=== PATIENT | female | born 1975 | race Caucasian/White ===

== ENCOUNTER 2017-07-24 05:35 | Emergency (ER) | payer BC ==
[~2017-07-24] VITALS: Ht 175.3 cm; Wt 125.6 kg
[2017-07-24 05:37] VITALS: TEMP 37; Ht 175.3 cm; Wt 125.6 kg
--- NOTE | 2017-07-24 05:58 | EMERGENCY ROOM VISIT NOTE ---
History First contact with patient: 05:43 Chief Complaint: IRREGULAR HEARTBEAT Stated Complaint: HEART FLUTTERING Nursing Triage Summary: pt c/o "heart fluttering" since yesterday. 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 pt states she has had two ablasions and was on medications, but is not now. states "i can normally control it, but not this time. i normally get it when i'm on my period, which i have now." pt reports "fluttering" began last night while trick or treating with kids, reports "i had this pain behind my knee, and my sister thought my leg looked swollen." pt reports pain behind left knee. pt alert and oriented x4. pt breathing WNL, ambulatory independently. denies sob, chest pain. skin warm and dry. History of Present Illness The patient is a 42 year old female who presents to the Emergency Room for evaluation of palpitations. Patient with rapid palpations throughout the night periodically breaking before going fast again. Associated with some mild lightheadedness. These have occurred previously with her menstrual cycle though notes this is acutely worse tonight and she is unable to break it completely. Admits that since getting here no further palpations. History of WPW which failed 2 ablations and previously required Flecainide but has been off this for quite some time. Denies cp, nausea, vomiting, syncope, headache, neck pain, sob, abdominal pain, urinary/bowel changes nor other symptoms. Admits some left calf swelling over last 6 months s/p injury without significant pain/discomfort. Denies medication use for this. Nothing makes better nor worse. No PE history, no travel, no surgery, no estrogen use. Review of Systems See HPI for pertinent positives & negatives. A total of 10 systems reviewed and were otherwise negative. Social History Smoking Status: Never Smoker Smokeless Tobacco Use: No Alcohol Use: none Drug Use: none Marital Status: Housing Status: lives with family Current/Historical Medications Miscellaneous Medications None (Patient States No Home Meds) Physical Exam Vital Signs Date Time Temp Pulse Resp B/P (MAP) Pulse Ox O2 Delivery O2 Flow Rate FiO2 07/24/17 05:55 113 07/24/17 05:45 Room Air 07/24/17 05:37 37.0 96 20 180/119 99 Room Air Physical Exam GENERAL: Patient is well appearing and in no acute distress. HEENT: No acute trauma, normocephalic atraumatic, mucous membranes moist, no nasal congestion, no scleral icterus. NECK: No stridor, no adenopathy, no meningismus, trachea is midline. LUNGS: No dyspnea. Clear to auscultation and equal bilaterally. No wheeze, no rhonchi. HEART: Regular rate and rhythm. No murmurs, rubs, gallops appreciated. ABDOMEN: Soft, nontender, bowel sounds positive, no masses appreciated, no peritonitis. BACK: No midline tenderness, no CVA tenderness EXTREMITIES: Mild TTP left calf. Bilateral trace lower anterior jackson edema. Normal motion all extremities. NEUROLOGIC: Alert and oriented, no acute motor or sensory deficits, no focal weakness, cranial nerves grossly intact. SKIN: No rash, no jaundice, no diaphoresis. Medical Decision & Procedures ER Provider Diagnostic Interpretation: X ray results are stated below per my interpretation: Chest: 1 view: No infiltrate, no effusion, normal cardiac border. Laboratory Results Test 07/24/17 05:51 ECG Indication: palpitations Rate (beats per minute): 91 Rhythm: normal sinus Findings: ST depression (Anterior), other (WPW) Change: no significant change ([id number]) Medical Decision Differential: NSR, SVT, PACs, PVCs, Cardiac Dysrhythmia, Endocrine Dysfunction, Electrolyte/Metabolic Abnormality, Pulmonary Embolism, Infectious, GI, amongst other pathologies entertained. Very pleasant 42 yr old female arrives for evaluation of palpitations overnight. History of WPW consistent with EKGs x 2 here. EKGs similar to previous from [facility]. Having no palpations here nor difficulty with other symptoms. I did note some left calf discomfort thus with palpations felt it prudent to get Dimer, though with minimal PE risk otherwise seems reasonable to await this prior to CTA given stable vitals. Multiple other labs ordered and pending. Signed out to Dr Ochoa awaiting labs and further evaluation. Medication Reconcilliation Current Medication List: was personally reviewed by me Impression Primary Impression: Rapid palpitations Departure Information Referrals Bren Mcguire D.O. (PCP) Patient Instructions [facility]
--- NOTE | 2017-07-24 06:31 | DIAGNOSTIC IMAGING REPORT ---
CHEST ONE VIEW PORTABLE CLINICAL HISTORY: palpitations COMPARISON STUDY: No previous studies for comparison. FINDINGS: The heart is at the upper limits of normal in size. There is no failure. There is no focal pulmonary consolidation. There are no pleural effusions.[ IMPRESSION: No active disease in the chest. Electronically signed by: Riaz Lanza M.D. 07/24/2017 6:30 AM Dictated Date/Time: 07/24/2017 6:30 AM
[2017-07-24 06:42] LABS: BASO % 0.9 %; BASO ABS # 0.07 K/uL (0-0.2); COMPLETE YES; EOS % 2.9 %; HEMATOCRIT 34.1 % (37-47); IG% 0.1 %; LYMPH % 23.1 %; LYMPH ABS # 1.74 K/uL (1.2-3.4); MEAN CELL VOLUME 78.9 fL (80-100); MEAN CORPUSCULAR HEMOGLOBIN 24.1 pg (25-34); MEAN CORPUSCULAR HGB CONC 30.5 g/dl (32-36); MEAN PLATELET VOLUME 9.6 fL (7.4-10.4); MONO % 7.2 %; NEUT % 65.8 %; PLATELET COUNT 341 K/uL (130-400); RED BLOOD COUNT 4.32 M/uL (4.2-5.4); WHITE BLOOD COUNT 7.53 K/uL (4.8-10.8)
[2017-07-24 07:11] LABS: BLOOD UREA NITROGEN 10 mg/dl (7-18); CREATININE 0.73 mg/dl (0.60-1.20); GLUCOSE 101 mg/dl (70-99)
[2017-07-24 07:12] LABS: BUN/CREATININE RATIO 13.2 (10-20); CARBON DIOXIDE 25 mmol/L (21-32); CHLORIDE 109 mmol/L (98-107); MAGNESIUM 2.2 mg/dl (1.8-2.4); POTASSIUM 3.6 mmol/L (3.5-5.1); SODIUM 140 mmol/L (136-145)
--- NOTE | 2017-07-24 07:36 | EMERGENCY ROOM VISIT NOTE ---
ED Visit Note This is a 42-year-old female who presents to the ED with a chief complaint of palpitations. The patient was signed out to me awaiting lab results. I did evaluate the patient. She is currently asymptomatic. She is not having any palpitations in her current monitor reading shows a sinus rhythm with a normal rate. The patient's blood work including a troponin, d-dimer, chemistry panel and CBC are normal to unremarkable. Her vital signs are stable. Chest x-ray did not show acute disease. The patient was told the results of the test. She is felt to be stable for discharge and outpatient follow-up. Diagnosis: Palpitations
[2017-07-24 08:09] VITALS: BP 152/97; PULSE 76; O2SAT 95
== END 2017-07-24 08:10 | disposition home or self-care (01) ==
LOC: C.EDB 05:36 → C.EDA 08:10
DX: R00.0 Tachycardia, unspecified (principal)